=== PATIENT | female | born 1955 | race Caucasian/White ===

== ENCOUNTER → 2016-09-25 | Outpatient (REF) | payer OTHER ==
[2016-09-25 15:47] LABS: ALBUMIN/GLOBULIN RATIO 1.11 (1.00-1.93); BILIRUBIN,TOTAL 0.5 MG/DL (0.2-1.0); CALCIUM LEVEL 9.8 MG/DL (8.8-10.2); CREATININE FOR GFR 1.12 MG/DL (0.55-1.02); GLOMERULAR FILTRATION RATE 52.7 (>45); POTASSIUM SERUM 3.9 MEQ/L (3.5-5.1); TOTAL PROTEIN 7.6 GM/DL (6.4-8.2)
== END ==
LOC: M SFHCLACO 07:56
PROVIDERS: ATTEND Physician Assistant
DX: E78.2 Mixed hyperlipidemia (principal); I10 Essential (primary) hypertension; Z85.858 Personal history of malignant neoplasm of other endocrine glands

== ENCOUNTER → 2016-12-23 | Outpatient (REF) | payer OTHER ==
[2016-12-23 15:18] LABS: ALBUMIN 4.1 GM/DL (3.2-5.2); ALBUMIN/GLOBULIN RATIO 1.17 (1.00-1.93); BILIRUBIN,TOTAL 0.6 MG/DL (0.2-1.0); CALCIUM LEVEL 9.4 MG/DL (8.8-10.2); CREATININE FOR GFR 1.01 MG/DL (0.55-1.02); GLOMERULAR FILTRATION RATE 59.1 (>45); POTASSIUM SERUM 3.9 MEQ/L (3.5-5.1); TOTAL PROTEIN 7.6 GM/DL (6.4-8.2)
== END ==
LOC: M SFHCLACO 08:19
PROVIDERS: ATTEND Physician Assistant
DX: E78.2 Mixed hyperlipidemia (principal); I10 Essential (primary) hypertension

== ENCOUNTER → 2016-12-30 | Outpatient (REF) | payer OTHER | LOC: M SFHCLACO 08:50 | PROVIDERS: ATTEND Physician Assistant | DX: R73.9 Hyperglycemia, unspecified (principal); E55.9 Vitamin D deficiency, unspecified ==

== ENCOUNTER → 2017-06-23 | Outpatient (REF) | payer OTHER ==
[2017-06-23 14:28] LABS: ALBUMIN 4.1 GM/DL (3.2-5.2); ALBUMIN/GLOBULIN RATIO 1.14 (1.00-1.93); ALKALINE PHOSPHATASE 103 U/L (45-117); ALT/SGPT 33 U/L (12-78); ANION GAP 9 MEQ/L (8-16); AST/SGOT 21 U/L (7-37); BILIRUBIN,TOTAL 0.4 MG/DL (0.2-1.0); BLOOD UREA NITROGEN 12 MG/DL (7-18); CALCIUM LEVEL 9.4 MG/DL (8.8-10.2); CARBON DIOXIDE LEVEL 26 MEQ/L (21-32); CHLORIDE LEVEL 108 MEQ/L (98-107); CHOLESTEROL LEVEL 208 MG/DL (<200); CHOLESTEROL RISK RATIO 5.777 (<5); CREATININE FOR GFR 0.72 MG/DL (0.55-1.30); GLOMERULAR FILTRATION RATE > 60.0 (>45); GLUCOSE, FASTING 105 MG/DL (70-100); HDL CHOLESTEROL 36 MG/DL (>40); LDL CHOLESTEROL 126.8 MG/DL (<100); NON-HDL-C 172 MG/DL; SODIUM LEVEL 143 MEQ/L (136-145); TOTAL PROTEIN 7.7 GM/DL (6.4-8.2); TRIGLYCERIDES LEVEL 226 MG/DL (<150)
[2017-06-23 14:42] LABS: ESTIMATED AVERAGE GLUCOSE 146 MG/DL (60-110); HEMOGLOBIN A1c 6.7 %
== END ==
LOC: M SFHCLACO 08:01
DX: I10 Essential (primary) hypertension (principal); E78.2 Mixed hyperlipidemia

== ENCOUNTER → 2017-09-22 | Outpatient (REF) | payer OTHER ==
[2017-09-22 15:14] LABS: TOTAL 25(OH) VITAMIN D 11.6 NG/ML (30.0-100.0)
[2017-09-22 17:02] LABS: ALBUMIN 4.3 GM/DL (3.2-5.2); ALBUMIN/GLOBULIN RATIO 1.16 (1.00-1.93); ALKALINE PHOSPHATASE 113 U/L (45-117); ALT/SGPT 31 U/L (12-78); ANION GAP 10 MEQ/L (8-16); AST/SGOT 22 U/L (7-37); BILIRUBIN,TOTAL 0.5 MG/DL (0.2-1.0); BLOOD UREA NITROGEN 15 MG/DL (7-18); CALCIUM LEVEL 9.6 MG/DL (8.8-10.2); CARBON DIOXIDE LEVEL 27 MEQ/L (21-32); CHLORIDE LEVEL 106 MEQ/L (98-107); CHOLESTEROL LEVEL 210 MG/DL (<200); CHOLESTEROL RISK RATIO 5.833 (<5); CREATININE FOR GFR 0.83 MG/DL (0.55-1.30); GLOMERULAR FILTRATION RATE > 60.0 (>45); GLUCOSE, FASTING 93 MG/DL (70-100); HDL CHOLESTEROL 36 MG/DL (>40); NON-HDL-C 174 MG/DL; POTASSIUM SERUM 3.9 MEQ/L (3.5-5.1); SODIUM LEVEL 143 MEQ/L (136-145); TRIGLYCERIDES LEVEL 210 MG/DL (<150)
[2017-09-22 19:03] LABS: ESTIMATED AVERAGE GLUCOSE 143 MG/DL (60-110); HEMOGLOBIN A1c 6.6 %
== END ==
LOC: M SFHCLACO 08:18
DX: I10 Essential (primary) hypertension (principal); E78.2 Mixed hyperlipidemia; E11.9 Type 2 diabetes mellitus without complications; E55.9 Vitamin D deficiency, unspecified

== ENCOUNTER → 2020-01-17 | Outpatient (CLI) | payer MEDICARE, OTHER ==
--- NOTE | 2020-01-20 13:34 | REP ---
CHEST X-RAY CLINICAL: Cough. TECHNIQUE: PA and lateral. COMPARISON: None. FINDINGS: Mediastinum and cardiac silhouette normal. Lung nunn are clear. No consolidation, effusion, or pneumothorax. Surgical bernardino along the left axillary region noted. Skeletal structures intact. IMPRESSION: No acute cardiopulmonary process or focal consolidation. MTDD
== END ==
LOC: M ADAMS 09:38
PROVIDERS: ATTEND Physician Assistant
DX: R05 Cough (principal)

== ENCOUNTER → 2022-06-04 | Outpatient (CLI) | payer MEDICARE, BC, OTHER | LOC: M RAD 08:41 | PROVIDERS: ATTEND Family Medicine | DX: I10 Essential (primary) hypertension (principal); N28.1 Cyst of kidney, acquired; N20.0 Calculus of kidney ==

== ENCOUNTER → 2022-08-05 | Outpatient (REF) | payer MEDICARE, OTHER ==
[2022-08-05 13:56] LABS: HEMOGLOBIN A1c 6.1 % (4.0-6.0)
== END ==
LOC: M SFHCADAM 10:39
PROVIDERS: ATTEND Family Medicine
DX: E11.9 Type 2 diabetes mellitus without complications (principal)

== ENCOUNTER 2023-05-13 18:31 | Emergency (ER) | payer MEDICARE, BC, OTHER ==
[~2023-05-13] VITALS: Ht 165.1 cm; Wt 62.9 kg
[2023-05-13] MEDS ORDERED: CREO6000 PO (18:49)
[2023-05-13] MEDS ORDERED: AMLO2.5T3 PO (18:49)
[2023-05-13] MEDS ORDERED: LOSA100T46 PO (18:49)
[2023-05-13] MEDS ORDERED: FAMO40TA3 PO (18:49)
[2023-05-13] MEDS: NS 1,000 ML IV ONE (19:10)
[2023-05-13] MEDS: **hydrALAZINE** 50 MG TAB PO ONE (19:36)
[2023-05-13] MEDS: NITROGLYCERIN 2% OINT 1 GM *U/D* PKT TOP ONE (19:37)
[2023-05-13 19:45] LABS: BASO # 0.1 10^3/uL (0.0-0.2); BASO % 0.5 % (0.0-1.0); EOS # 0.5 10^3/uL (0.0-0.5); EOS % 4.1 % (0.0-3.0); HEMATOCRIT 34.5 % (36.0-47.0); HEMOGLOBIN 12.3 g/dl (12.0-15.5); LYMPH # 3.2 10^3/uL (1.5-5.0); LYMPH % 26.5 % (24.0-44.0); MEAN CORPUSCULAR HEMOGLOBIN 33.2 pg (27.0-33.0); MEAN CORPUSCULAR HGB CONC 35.7 g/dl (32.0-36.5); MEAN CORPUSCULAR VOLUME 93.2 fl (80.0-96.0); MONO # 0.9 10^3/uL (0.0-0.8); NEUTROPHILS # 7.5 10^3/uL (1.5-8.5); NEUTROPHILS % 61.6 % (36.0-66.0); PLATELET COUNT, AUTOMATED 273 10^3/uL (150-450); WHITE BLOOD COUNT 12.1 10^3/uL (4.0-10.0)
[2023-05-13 20:16] LABS: LIPASE 28 U/L (12-53)
[2023-05-13 20:19] LABS: ALBUMIN 4.2 G/DL (3.2-5.2); ALKALINE PHOSPHATASE 101 U/L (46-116); ALT/SGPT 19 U/L (7.0-40); AST/SGOT 30 U/L (<34); BILIRUBIN,DIRECT < 0.1 MG/DL (<0.4); BILIRUBIN,TOTAL 0.4 MG/DL (0.3-1.2); BLOOD UREA NITROGEN 37 MG/DL (9-23); CALCIUM LEVEL 10.3 MG/DL (8.3-10.6); CARBON DIOXIDE LEVEL 20 MMOL/L (20-31); CHLORIDE LEVEL 108 MMOL/L (98-107); CK-MB VALUE MASS < 1.0 NG/ML (<3.6); GLOMERULAR FILTRATION RATE 34.1 (>45); GLUCOSE, FASTING 100 MG/DL (74-106); POTASSIUM SERUM 4.7 MMOL/L (3.5-5.1); SODIUM LEVEL 138 MMOL/L (136-145); TOTAL PROTEIN 7.6 G/DL (5.7-8.2)
[2023-05-13 20:20] LABS: FREE T4 1.36 NG/DL (0.89-1.76); THYROID STIMULATING HORMONE 0.661 uIU/ML (0.55-4.78)
[2023-05-13 20:28] LABS: CPK CREATINE PHOSPHOKINASE 108 U/L (34-145); MB/CK RELATIVE INDEX 0.92 (< OR =4)
[2023-05-13] MEDS: NIFEdipine 10 MG CAP PO ONE ×2 (20:28→21:37)
[2023-05-13 21:00] VITALS: TEMP 98
[2023-05-13 21:37] VITALS: BP 183/80
[2023-05-13 22:15] VITALS: BP 166/79; O2SAT 96
[2023-05-13] MEDS ORDERED: NIFE60TA96 PO (22:24)
[2023-05-13] MEDS ORDERED: HYDR50TA47 PO (22:24)
[2023-05-13] MEDS ORDERED: **hydrALAZINE** 50 MG TAB PO ONE (23:00)
[2023-05-28 15:16] LABS: METANEPHRINE PLASMA 46.5 pg/mL (0.0-88.0); NORMETANEPHRINE PLASMA 179.9 pg/mL (0.0-285.2)
== END 2023-05-13 22:48 | disposition home or self-care (01) ==
LOC: M ED 18:31
DX: I16.0 Hypertensive urgency (principal); I10 Essential (primary) hypertension; F17.200 Nicotine dependence, unspecified, uncomplicated; Z88.6 Allergy status to analgesic agent; Z88.5 Allergy status to narcotic agent; Z88.8 Allergy status to other drugs, medicaments and biological substances; Z79.811 Long term (current) use of aromatase inhibitors; Z79.899 Other long term (current) drug therapy
CPT/HCPCS: 71045; 80048; 80076; 82550; 82553; 83690; 83735; 83835; 84439; 84443; 84484; 85025; 93005; 93041; 94760; 96360; 99285; G0463

== ENCOUNTER → 2023-05-13 | Outpatient (REF) | payer MEDICARE, BC, OTHER ==
[~2023-05-13] MED LIST: AMLO2.5T3 PO; CREO6000 PO; FAMO40TA3 PO; HYDR50TA47 PO; LOSA100T46 PO; NIFE60TA96 PO
== END ==
LOC: M SFHCADAM 17:39
PROVIDERS: ATTEND Family Medicine
DX: I10 Essential (primary) hypertension (principal)

== ENCOUNTER → 2023-05-15 | Outpatient (REF) | payer MEDICARE, OTHER | LOC: M SFHCADAM 12:49 | PROVIDERS: ATTEND Family Medicine | DX: I10 Essential (primary) hypertension (principal) ==

== ENCOUNTER 2023-05-19 15:44 | Inpatient (IN) | payer MEDICARE, BC, OTHER ==
[~2023-05-19] VITALS: Ht 165.1 cm; Wt 60.0 kg
[~2023-05-19 15:44] MED LIST changes: -HYDR-3910 PO; -NIFE1TAB51 PO; -RA V400C PO; -VITA-325 PO
[2023-05-19 16:37] LABS: BASO % 0.5 % (0.0-1.0); EOS # 0.2 10^3/uL (0.0-0.5); EOS % 1.8 % (0.0-3.0); HEMATOCRIT 33.5 % (36.0-47.0); HEMOGLOBIN 11.7 g/dl (12.0-15.5); LYMPH # 1.8 10^3/uL (1.5-5.0); LYMPH % 20.3 % (24.0-44.0); MEAN CORPUSCULAR HEMOGLOBIN 32.7 pg (27.0-33.0); MEAN CORPUSCULAR HGB CONC 34.9 g/dl (32.0-36.5); MEAN CORPUSCULAR VOLUME 93.6 fl (80.0-96.0); MONO # 0.9 10^3/uL (0.0-0.8); MONO % 10.3 % (2.0-8.0); NEUTROPHILS # 5.9 10^3/uL (1.5-8.5); NEUTROPHILS % 66.9 % (36.0-66.0); PLATELET COUNT, AUTOMATED 238 10^3/uL (150-450); RED BLOOD COUNT 3.58 10^6/uL (4.00-5.40); WHITE BLOOD COUNT 8.9 10^3/uL (4.0-10.0)
[2023-05-19 17:04] LABS: MB/CK RELATIVE INDEX 1.23 (< OR =4)
[2023-05-19 17:11] LABS: RSV AMPLIFICATION NEGATIVE (NEGATIVE)
[2023-05-19 17:16] LABS: ALBUMIN 4.1 G/DL (3.2-5.2); BILIRUBIN,DIRECT 0.1 MG/DL (<0.4); BILIRUBIN,TOTAL 0.3 MG/DL (0.3-1.2); CALCIUM LEVEL 10.4 MG/DL (8.3-10.6); GLOMERULAR FILTRATION RATE 26.4 (>45); POTASSIUM SERUM 4.1 MMOL/L (3.5-5.1); TOTAL PROTEIN 7.3 G/DL (5.7-8.2)
[2023-05-19 17:32] LABS: APPEARANCE, URINE CLEAR (CLEAR); BACTERIA, URINE AUTO NEGATIVE (NEGATIVE); BILIRUBIN, URINE AUTO NEGATIVE (NEGATIVE); BLOOD, URINE BLOOD NEGATIVE (NEGATIVE); COLOR, URINE YELLOW (YELLOW); GLUCOSE, URINE (UA) AUTO 1+ mg/dL (NEGATIVE); KETONE, URINE AUTO NEGATIVE (NEGATIVE); LEUKOCYTE ESTERASE, URINE AUTO NEGATIVE (NEGATIVE); NITRITE, URINE AUTO NEGATIVE (NEGATIVE); PROTEIN, URINE AUTO 2+ mg/dL (NEGATIVE); RBC, URINE AUTO 1 /HPF (0-3); SPECIFIC GRAVITY URINE AUTO 1.012 (1.002-1.035); SQUAMOUS EPITHELIAL CELL UR AU 2 /HPF (0-6); UROBILINOGEN, URINE AUTO 0.2 mg/dL (0.0-2.0); WBC, URINE AUTO 1 /HPF (0-3)
[2023-05-19] MEDS: NIFEdipine 10 MG CAP PO ONE ×2 (17:33→20:18)
[2023-05-19 17:54] LABS: CREATININE, URINE 63.3 MG/DL; CREATININE,RANDOM URINE 63.3 MG/DL
[2023-05-19] MEDS: NITROGLYCERIN 2% OINT 1 GM *U/D* PKT TOP ONE (18:11)
[2023-05-19 20:31] LABS: MB/CK RELATIVE INDEX 1.36 (< OR =4)
[2023-05-19] MEDS ORDERED: HYDR25TA87 PO (20:46)
[2023-05-19] MEDS ORDERED: NIFE1TAB51 PO (20:46)
[2023-05-19] MEDS ORDERED: VITA-325 PO (20:49)
[2023-05-19] MEDS ORDERED: RA V400C PO (20:49)
[2023-05-19] MEDS ORDERED: MOM 30ML SUSPENSION UDC PO PRN (20:50)
[2023-05-19] MEDS ORDERED: HOME MED LIST COMPLETE! XX SCH (20:50)
[2023-05-19] MEDS: FAMOTIDINE 20 MG TAB PO SCH (21:40)
[2023-05-19] MEDS: DOCUSATE SODIUM 100MG CAPSULE PO SCH (21:40)
[2023-05-19 21:51] LABS: CREATININE FOR GFR 1.92 MG/DL (0.55-1.30); GLOMERULAR FILTRATION RATE 27.6 (>45)
[2023-05-19 22:40] VITALS: BP 172/81; TEMP 97.5; O2SAT 97
[2023-05-20] VITALS (20 sets, daily range): BP systolic 163–220; BP diastolic 79–110; TEMP 97–98.4; O2SAT 94–97
[2023-05-20] MEDS: LABETALOL 100MG/20ML VIAL IV PRN (01:13)
[2023-05-20] MEDS: HEPARIN SOD (PORCINE) 5000UNITS/ML 1ML VIAL/SYRINGE SC SCH (05:16)
[2023-05-20 05:44] LABS: HEMATOCRIT 31.9 % (36.0-47.0); HEMOGLOBIN 11.1 g/dl (12.0-15.5); MEAN CORPUSCULAR HEMOGLOBIN 32.1 pg (27.0-33.0); MEAN CORPUSCULAR HGB CONC 34.8 g/dl (32.0-36.5); MEAN CORPUSCULAR VOLUME 92.2 fl (80.0-96.0); PLATELET COUNT, AUTOMATED 234 10^3/uL (150-450); RED BLOOD COUNT 3.46 10^6/uL (4.00-5.40); WHITE BLOOD COUNT 8.5 10^3/uL (4.0-10.0)
[2023-05-20 06:07] LABS: ALBUMIN 3.7 G/DL (3.2-5.2); BILIRUBIN,TOTAL 0.5 MG/DL (0.3-1.2); CALCIUM LEVEL 10.1 MG/DL (8.3-10.6); CREATININE FOR GFR 1.7 MG/DL (0.55-1.30); GLOMERULAR FILTRATION RATE 31.8 (>45); TOTAL PROTEIN 6.7 G/DL (5.7-8.2)
[2023-05-20] MEDS ORDERED: **hydrALAZINE HCL** 25 MG TAB PO SCH (09:00)
[2023-05-20] MEDS: METOPROLOL TART 25 MG TABLET PO SCH (09:27)
[2023-05-20] MEDS: NIFEdipine 30MG XL TAB PO SCH (09:27)
[2023-05-20] MEDS: CREON-12 CAPSULE PO SCH (10:23)
[2023-05-20 11:06] LABS: CREATININE,RANDOM URINE 85.3 MG/DL
[2023-05-20] MEDS: **hydrALAZINE** 10 MG TAB PO SCH (13:39)
[2023-05-20 14:57] LABS: TOTAL PROTEIN,RANDOM URINE 65.9 MG/DL (0.0-14.0)
[2023-05-20] MEDS: hydrALAZINE 20MG/ML 1ML VIAL IV STA (15:05)
[2023-05-20] MEDS: METOPROLOL TART 25 MG TABLET PO ONE (15:05)
[2023-05-20] MEDS: METOPROLOL TART 50 MG TAB PO SCH (21:06)
[2023-05-21] VITALS (9 sets, daily range): BP systolic 156–194; BP diastolic 72–98; TEMP 97.1–98.4; O2SAT 93–98
[2023-05-21 05:39] LABS: BASO # 0.1 10^3/uL (0.0-0.2); BASO % 0.6 % (0.0-1.0); EOS # 0.3 10^3/uL (0.0-0.5); EOS % 3.1 % (0.0-3.0); HEMATOCRIT 34.8 % (36.0-47.0); HEMOGLOBIN 12.2 g/dl (12.0-15.5); LYMPH # 3.1 10^3/uL (1.5-5.0); MEAN CORPUSCULAR HEMOGLOBIN 32.2 pg (27.0-33.0); MEAN CORPUSCULAR HGB CONC 35.1 g/dl (32.0-36.5); MEAN CORPUSCULAR VOLUME 91.8 fl (80.0-96.0); MONO % 9.6 % (2.0-8.0); NEUTROPHILS # 6.4 10^3/uL (1.5-8.5); NEUTROPHILS % 58.4 % (36.0-66.0); PLATELET COUNT, AUTOMATED 284 10^3/uL (150-450); RED BLOOD COUNT 3.79 10^6/uL (4.00-5.40); WHITE BLOOD COUNT 10.9 10^3/uL (4.0-10.0)
[2023-05-21 05:58] LABS: ALBUMIN 3.4 G/DL (3.2-5.2); CALCIUM LEVEL 9.4 MG/DL (8.3-10.6); CREATININE FOR GFR 1.84 MG/DL (0.55-1.30); PHOSPHORUS LEVEL 3.5 MG/DL (2.4-5.1)
[2023-05-21] MEDS: **hydrALAZINE** 50 MG TAB PO SCH (12:02)
[2023-05-21] MEDS ORDERED: LOPR1TAB6 PO (14:21)
[2023-05-21] MEDS ORDERED: HYDR50TA46 PO (14:21)
[2023-05-21 14:24] LABS: TOTAL PROTEIN 24 HOUR URINE 381.6 MG/24HR (50-80); URINE TOTAL PROTEIN 44.9 MG/DL (0-14)
[2023-05-21] MEDS ORDERED: NIFE1TAB52 PO (14:25)
== END 2023-05-21 15:40 | disposition home or self-care (01) | DRG 281 ==
LOC: M ED 15:44 → M ED INP 20:50 → ENRESERV 21:31 → M PCU 22:36
PROVIDERS: ADMIT Family Medicine; ATTEND Family Medicine
DX: I15.0 Renovascular hypertension (principal); I21.A1 Myocardial infarction type 2; I16.1 Hypertensive emergency; N17.9 Acute kidney failure, unspecified; E87.1 Hypo-osmolality and hyponatremia; E87.20 Acidosis, unspecified; I70.1 Atherosclerosis of renal artery; E11.9 Type 2 diabetes mellitus without complications; E78.5 Hyperlipidemia, unspecified; K86.81 Exocrine pancreatic insufficiency; K21.9 Gastro-esophageal reflux disease without esophagitis; K22.70 Barrett's esophagus without dysplasia; Z85.51 Personal history of malignant neoplasm of bladder; Z85.3 Personal history of malignant neoplasm of breast; Z90.10 Acquired absence of unspecified breast and nipple; F17.210 Nicotine dependence, cigarettes, uncomplicated; Z79.899 Other long term (current) drug therapy; Z88.5 Allergy status to narcotic agent; Z88.6 Allergy status to analgesic agent; Z88.8 Allergy status to other drugs, medicaments and biological substances; Z20.822 Contact with and (suspected) exposure to COVID-19; N18.9 Chronic kidney disease, unspecified

== ENCOUNTER → 2023-05-19 | Outpatient (CLI) | payer MEDICARE, BC, OTHER ==
[~2023-05-19] MED LIST changes: +HYDR-3910 PO; +NIFE1TAB51 PO; +RA V400C PO; +VITA-325 PO
== END ==
LOC: M PLAIMG 13:48
PROVIDERS: ATTEND Family Medicine
DX: I10 Essential (primary) hypertension (principal); N20.0 Calculus of kidney; N28.1 Cyst of kidney, acquired

== ENCOUNTER → 2023-05-19 | Outpatient (REF) | payer MEDICARE, BC, OTHER ==
[2023-05-19 13:47] LABS: BASO # 0.1 10^3/uL (0.0-0.2); BASO % 0.7 % (0.0-1.0); EOS # 0.2 10^3/uL (0.0-0.5); EOS % 2.2 % (0.0-3.0); HEMATOCRIT 36.4 % (36.0-47.0); HEMOGLOBIN 12.4 g/dl (12.0-15.5); LYMPH # 1.8 10^3/uL (1.5-5.0); LYMPH % 20.3 % (24.0-44.0); MEAN CORPUSCULAR HEMOGLOBIN 32.5 pg (27.0-33.0); MEAN CORPUSCULAR HGB CONC 34.1 g/dl (32.0-36.5); MEAN CORPUSCULAR VOLUME 95.3 fl (80.0-96.0); MONO % 10.9 % (2.0-8.0); NEUTROPHILS % 65.7 % (36.0-66.0); PLATELET COUNT, AUTOMATED 281 10^3/uL (150-450); RED BLOOD COUNT 3.82 10^6/uL (4.00-5.40); WHITE BLOOD COUNT 9.1 10^3/uL (4.0-10.0)
[2023-05-19 14:30] LABS: HEMOGLOBIN A1c 5.4 % (4.0-6.0)
[2023-05-19 14:31] LABS: ALBUMIN 4.8 G/DL (3.2-5.2); BILIRUBIN,TOTAL 0.4 MG/DL (0.3-1.2); CALCIUM LEVEL 10.5 MG/DL (8.3-10.6); CREATININE FOR GFR 1.97 MG/DL (0.55-1.30); GLOMERULAR FILTRATION RATE 26.8 (>45); POTASSIUM SERUM 3.9 MMOL/L (3.5-5.1); THYROID STIMULATING HORMONE 0.226 uIU/ML (0.55-4.78); TOTAL PROTEIN 7.8 G/DL (5.7-8.2)
== END ==
LOC: M SFHCADAM 09:54
PROVIDERS: ATTEND Family Medicine
DX: E11.9 Type 2 diabetes mellitus without complications (principal); I10 Essential (primary) hypertension

== ENCOUNTER → 2023-05-27 | Outpatient (REF) | payer MEDICARE, BC, OTHER ==
[~2023-05-27] MED LIST changes: +HYDR25TA87 PO; +HYDR50TA46 PO; +LOPR1TAB6 PO; +NIFE1TAB51 PO; +NIFE1TAB52 PO; +RA V400C PO; +VITA-325 PO
[2023-05-27 13:23] LABS: CALCIUM LEVEL 10.3 MG/DL (8.3-10.6); CREATININE FOR GFR 1.59 MG/DL (0.55-1.30); GLOMERULAR FILTRATION RATE 34.4 (>45); POTASSIUM SERUM 4.1 MMOL/L (3.5-5.1)
== END ==
LOC: M SFHCADAM 08:40
PROVIDERS: ATTEND Family Medicine
DX: I10 Essential (primary) hypertension (principal); N17.9 Acute kidney failure, unspecified

== ENCOUNTER → 2023-06-15 | Outpatient (REF) | payer MEDICARE, OTHER ==
[2023-06-15 14:41] LABS: ALBUMIN 3.8 G/DL (3.2-5.2); BILIRUBIN,TOTAL 0.4 MG/DL (0.3-1.2); CALCIUM LEVEL 10.6 MG/DL (8.3-10.6); CHOLESTEROL RISK RATIO 5.99 (<5); CREATININE FOR GFR 1.5 MG/DL (0.55-1.30); GLOMERULAR FILTRATION RATE 36.8 (>45); HDL CHOLESTEROL 29.7 MG/DL (>40); LDL CHOLESTEROL 117.1 MG/DL (<100); NON-HDL-C 148.3 MG/DL; POTASSIUM SERUM 4.4 MMOL/L (3.5-5.1); TOTAL PROTEIN 7.5 G/DL (5.7-8.2)
== END ==
LOC: M SFHCADAM 09:33
PROVIDERS: ATTEND Family Medicine
DX: Z00.00 Encounter for general adult medical examination without abnormal findings (principal); I10 Essential (primary) hypertension

== ENCOUNTER → 2023-07-22 | Outpatient (REF) | payer MEDICARE, BC ==
[2023-07-22 14:15] LABS: ALBUMIN 3.2 G/DL (3.2-5.2); ALKALINE PHOSPHATASE 93 U/L (46-116); ALT/SGPT 22 U/L (7.0-40); AST/SGOT 16 U/L (<34); BILIRUBIN,TOTAL 0.3 MG/DL (0.3-1.2); BLOOD UREA NITROGEN 18 MG/DL (9-23); CALCIUM LEVEL 10.4 MG/DL (8.3-10.6); CARBON DIOXIDE LEVEL 26 MMOL/L (20-31); CHLORIDE LEVEL 109 MMOL/L (98-107); CREATININE FOR GFR 0.88 MG/DL (0.55-1.30); GLOMERULAR FILTRATION RATE > 60.0 (>45); GLUCOSE, FASTING 126 MG/DL (74-106); POTASSIUM SERUM 4.2 MMOL/L (3.5-5.1); SODIUM LEVEL 141 MMOL/L (136-145); TOTAL PROTEIN 7.1 G/DL (5.7-8.2)
== END ==
LOC: M SFHCADAM 08:32
PROVIDERS: ATTEND Family Medicine
DX: I15.0 Renovascular hypertension (principal)

== ENCOUNTER → 2023-10-05 | Outpatient (CLI) | payer MEDICARE, BC | LOC: M SLEEP HO 10:33 | PROVIDERS: ATTEND Internal Medicine Cardiovascular Disease | DX: I27.20 Pulmonary hypertension, unspecified (principal) ==

== ENCOUNTER → 2023-10-07 | Outpatient (CLI) | payer MEDICARE, BC | LOC: M RAD 10:01 | PROVIDERS: ATTEND Internal Medicine Cardiovascular Disease | DX: R09.89 Other specified symptoms and signs involving the circulatory and respiratory systems (principal) ==

== ENCOUNTER → 2023-10-14 | Outpatient (CLI) | payer MEDICARE, BC | LOC: M RAD 10:43 | PROVIDERS: ATTEND Family Medicine | DX: Z12.2 Encounter for screening for malignant neoplasm of respiratory organs (principal); F17.210 Nicotine dependence, cigarettes, uncomplicated ==

== ENCOUNTER → 2024-05-31 | Outpatient (REF) | payer MEDICARE, BC ==
[~2024-05-31] MED LIST changes: -RA V400C PO; +VITA268C PO
[2024-05-31 14:55] LABS: BILIRUBIN,TOTAL 0.4 MG/DL (0.3-1.2); CALCIUM LEVEL 10.1 MG/DL (8.3-10.6); CREATININE FOR GFR 1.14 MG/DL (0.55-1.30); GLOMERULAR FILTRATION RATE 50.3 (>45); POTASSIUM SERUM 4.6 MMOL/L (3.5-5.1); TOTAL PROTEIN 7.7 G/DL (5.7-8.2)
[2024-05-31 15:07] LABS: HEMOGLOBIN A1c 6.9 % (4.0-6.0)
== END ==
LOC: M SFHCADAM 08:50
PROVIDERS: ATTEND Family Medicine
DX: E11.9 Type 2 diabetes mellitus without complications (principal)

== ENCOUNTER → 2024-07-07 | Outpatient (REF) | payer MEDICARE, OTHER ==
[2024-07-07 18:46] LABS: THYROID STIMULATING HORMONE 0.336 uIU/ML (0.55-4.78)
[2024-07-07 18:48] LABS: FREE T4 1.26 NG/DL (0.89-1.76)
== END ==
LOC: M LAB REF 17:35
PROVIDERS: ATTEND Internal Medicine Nephrology
DX: E03.9 Hypothyroidism, unspecified (principal)

== ENCOUNTER → 2024-12-29 | Outpatient (CLI) | payer MEDICARE, BC | LOC: M RAD 09:22 | PROVIDERS: ATTEND Family Medicine | DX: Z12.2 Encounter for screening for malignant neoplasm of respiratory organs (principal); F17.218 Nicotine dependence, cigarettes, with other nicotine-induced disorders ==